=== PATIENT | female | born 1965 | race Two or more races ===

== ENCOUNTER 2023-04-11 09:47 | Day surgery (SDC) | payer OTHER ==
[2023-04-06 18:08] VITALS: BMI 23.8
[2023-04-11] MEDS ORDERED: VANCOMYCIN 1,000 MG VIAL (RESTRICTED TO ID ONLY) ONE ×2 (12:07→13:22)
[2023-04-11] MEDS ORDERED: TRANEXAMIC ACID 1000 MG/10 ML VIAL IVPUSH ONE (12:30)
[2023-04-11] MEDS ORDERED: MIDAZOLAM HCL 2 MG/2 ML SINGLE DOSE VIAL ONE (13:51)
[2023-04-11] MEDS ORDERED: TRANEXAMIC ACID 1000 MG/10 ML VIAL ONE ×2 (14:03→15:14)
[2023-04-11] MEDS ORDERED: DEXAMETHASONE SOD PHOSPHATE 4 MG/1 ML VIAL ONE (14:03)
[2023-04-11] MEDS ORDERED: LIDOCAINE HCL/PF 2% SDV 5ML VIAL ONE (14:03)
[2023-04-11] MEDS ORDERED: ceFAZolin SODIUM 1 GM VIAL ONE ×2 (14:03)
[2023-04-11] MEDS ORDERED: ONDANSETRON 4 MG/2 ML VIAL ONE (14:03)
[2023-04-11] MEDS ORDERED: PROPOFOL 20 ML ONE (14:59)
[2023-04-11] MEDS ORDERED: BUPIVICAINE 0.25%/MORPH PF/KETOROLAC - 51ML DISP.SYRINGE IA ONE (15:12)
[2023-04-11] MEDS ORDERED: MAGNESIUM HYDROX 2400MG/30ML ORAL SUSPENSION 30 ML CUP PO PRN (16:20)
[2023-04-11] MEDS ORDERED: MAG HYDROX/AL HYDROX/SIMETH 30 ML UNIT-DOSE CUP PO PRN (16:20)
[2023-04-11] MEDS ORDERED: ONDANSETRON 4 MG/2 ML VIAL IVPUSH PRN ×2 (16:20→16:49)
[2023-04-11] MEDS ORDERED: LACTATED RINGERS SOLUTION 1,000 ML IV SCH (16:30)
[2023-04-11] MEDS ORDERED: ePHEDrine SULFATE 50 MG/1 ML AMPULE ONE (16:43)
[2023-04-11] MEDS ORDERED: oxyCODONE HCL 5 MG TABLET PO PRN (16:47)
[2023-04-11] MEDS: ACETAMINOPHEN 1000 MG/100 ML BAG IVPB SCH (16:56)
[2023-04-11] MEDS: LACTATED RINGERS SOLUTION 1,000 ML IV SCH (17:50)
[2023-04-11] MEDS: SENNOSIDES/DOCUSATE COMBO (SENNA PLUS) TABLET (UD) PO SCH (21:07)
[2023-04-11] MEDS: CEFAZOLIN SODIUM 2 GM in DEXTROSE 5%-WATER 100 ML IVPB SCH (21:08)
[2023-04-11] MEDS: oxyCODONE HCL 5 MG TABLET PO PRN (21:08)
[2023-04-11] MEDS ORDERED: traZODone HCL 50 MG TABLET (FP) PO SCH (22:00)
[2023-04-11] MEDS: PANTOPRAZOLE 40 MG TABLET PO SCH (22:01)
[2023-04-11 22:41] VITALS: RESP 18
[2023-04-12] MEDS: ACETAMINOPHEN 1000 MG/100 ML BAG IVPB SCH ×3 (00:13→18:37)
[2023-04-12] MEDS ORDERED: HYDROmorphone HCl 2 MG/ML VIAL IVPB PRN ×2 (00:50→02:56)
[2023-04-12] MEDS ORDERED: KETOROLAC TROMETHAMINE 30 MG/1 ML VIAL IVPUSH PRN (02:58)
[2023-04-12] MEDS: CEFAZOLIN SODIUM 2 GM in DEXTROSE 5%-WATER 100 ML IVPB SCH ×2 (06:26→15:30)
[2023-04-12] MEDS: oxyCODONE HCL 5 MG TABLET PO PRN ×2 (06:34→15:31)
[2023-04-12 08:42] LABS: HEMATOCRIT 29.7 % (32.4-45.2); HEMOGLOBIN 9.6 G/dL (10.7-15.3); MCHC 32.3 g/dl (32.0-36.0); MEAN CELL VOLUME 86.6 fl (80-96); MEAN PLT VOLUME 8.8 fl (7.5-11.1); PLATELET COUNT 171.8 10^3/uL (134-434); RBC 3.43 10^6/uL (3.60-5.2); RDW 14.3 % (11.6-15.6); WHITE BLOOD COUNT 6.1 10^3/uL (4.0-10.8)
[2023-04-12 09:01] LABS: BLOOD UREA NITROGEN 11.5 mg/dl (7-18); CALCIUM 7.9 mg/dl (8.5-10.1); CREATININE 0.8 mg/dl (0.6-1.3); POTASSIUM 4.2 mmol/L (3.5-5.1)
[2023-04-12] MEDS: KETOROLAC TROMETHAMINE 30 MG/1 ML VIAL IVPUSH PRN ×2 (09:38→15:31)
[2023-04-12] MEDS: PANTOPRAZOLE 40 MG TABLET PO SCH (09:38)
[2023-04-12] MEDS ORDERED: ASPIRIN 81 MG CHEWABLE TABLETS PO SCH (10:00)
[2023-04-12] MEDS ORDERED: GABAPENTIN 100 MG CAPSULE PO SCH (10:00)
[2023-04-12] MEDS ORDERED: FAMOTIDINE 20 MG TABLET PO SCH (10:00)
[2023-04-12] MEDS ORDERED: PREGABALIN 50 MG CAPSULE PO SCH (10:00)
[2023-04-12] MEDS: SENNOSIDES/DOCUSATE COMBO (SENNA PLUS) TABLET (UD) PO SCH (11:13)
[2023-04-12 14:38] VITALS: BP 98/52; PULSE 82; TEMP 98.4
[2023-04-12] MEDS: LACTATED RINGERS SOLUTION 1,000 ML IV SCH (18:38)
== END 2023-04-12 18:30 | disposition home or self-care (01) ==
LOC: FASUSAT 09:47 → FM/S 18:12 → FASUSAT 04-12 18:30
PROVIDERS: ATTEND Internal Medicine
PROC: 0SRC0JA Replacement of Right Knee Joint with Synthetic Substitute, Uncemented, Open Approach (ICD-10-PCS; principal; 2023-04-11 14:32)
DX: M17.11 Unilateral primary osteoarthritis, right knee (principal)
CPT/HCPCS: 27447; C1776; 36415; 73560-TC-RT-FY; 80048; 85027; 88305-TC; 88311-TC; 94760; 97010-GP; 97116-GP; 97162-GP

== ENCOUNTER 2023-04-19 15:19 | Emergency (ER) | payer OTHER ==
[2023-04-19 15:50] VITALS: BP 119/61; PULSE 87; RESP 18; TEMP 98.7; BMI 23.8
[2023-04-19] MEDS ORDERED: morphine CARPU-JECT 4 MG/1 ML DISP.SYRIN IM ONE (16:35)
[2023-04-19] MEDS ORDERED: morphine SULFATE 4 MG/ML VIAL ONE (16:36)
== END 2023-04-19 17:35 | disposition home or self-care (01) ==
LOC: FER 15:19
PROC: 3E023GC Introduction of Other Therapeutic Substance into Muscle, Percutaneous Approach (ICD-10-PCS; principal; 2023-04-19)
DX: M25.561 Pain in right knee (principal); G89.18 Other acute postprocedural pain
CPT/HCPCS: 93971-TC; 99284-25